=== PATIENT | female | born 1960 | race Caucasian/White ===

== ENCOUNTER → 2018-02-23 | Outpatient (CLI) | payer OTHER ==
[2018-02-24 02:11] LABS: TESTOSTERONE < 3 ng/dL (3-41)
== END ==
LOC: M.LAB 14:46
PROVIDERS: Obstetrics & Gynecology
DX: N95.1 Menopausal and female climacteric states (principal); R68.82 Decreased libido

== ENCOUNTER 2018-07-26 22:09 | Emergency (ER) | payer OTHER ==
[~2018-07-26] VITALS: Ht 162.6 cm; Wt 59.0 kg
[2018-07-26] MEDS ORDERED: PROGESTERONE (22:19)
[2018-07-26] MEDS ORDERED: LISINOPRIL10 MG (22:19)
[2018-07-26 22:22] LABS: URINE BILIRUBIN NEGATIVE (Negative); URINE BLOOD NEGATIVE (Negative); URINE CLARITY CLEAR; URINE COLOR YELLOW; URINE GLUCOSE-RANDOM NEGATIVE (Negative); URINE KETONES NEGATIVE (Negative); URINE LEUKOCYTES-REFLEX NEGATIVE (Negative); URINE NITRITE-REFLEX NEGATIVE (Negative); URINE PROTEIN NEGATIVE (Negative); URINE SPECIFIC GRAVITY 1.015 (1.005-1.030); URINE UROBILINOGEN 0.2 E.U./dl (0.2-1.0)
[2018-07-26 22:38] LABS: ABSOLUTE EOSINOPHILS 0.1 thou/uL (0.0-0.7); ABSOLUTE LYMPHOCYTES 1.9 thou/uL (0.8-5.3); ABSOLUTE MONOCYTES 0.5 thou/uL (0.0-1.2); ABSOLUTE NEUTROPHILS 2.9 thou/uL (1.6-8.1); BASOPHILS 0.8 %; EOSINOPHILS 1.5 %; HEMATOCRIT 40.7 % (37.0-47.0); HEMOGLOBIN 13.8 gm/dL (12.0-15.0); LYMPHOCYTES 34.3 %; MCH 30.4 pg (26.0-34.0); MCV 89.5 fL (80.0-100.0); MONOCYTES 9.6 %; MPV 7.7 fl. (7.2-11.1); NUCLEATED RBCS 0 /100WBC; PLATELET COUNT* 295 thou/uL (150-400); POLYS 53.8 %; RBC 4.55 mil/uL (4.20-5.00); RDW-CV 13.4 % (10.5-14.5); WBC 5.5 thou/uL (4.0-11.0)
[2018-07-26 22:44] LABS: ANION GAP 5 mmol/L (7-16); BUN 24 mg/dL (7-18); CALCIUM 8.9 mg/dL (8.5-10.1); CHLORIDE 101 mmol/L (98-107); CO2 31 mmol/L (21-32); CREATININE 0.9 mg/dL (0.6-1.3); GLUCOSE 97 mg/dL (70-99); POTASSIUM 4.7 mmol/L (3.5-5.1); SODIUM 137 mmol/L (136-145)
[2018-07-26 22:49] LABS: PROTIME 10.7 Seconds (9.20-11.50)
[2018-07-26 22:55] LABS: ALBUMIN 3.9 g/dL (3.4-5.0); ALKALINE PHOSPHATASE 56 U/L (46-116); NT-PRO BRAIN NAT PEPTIDE 284 pg/mL (<300); SGOT 28 U/L (15-37); SGPT 27 U/L (30-65); TOTAL BILIRUBIN 0.4 mg/dL (<0.1-1.0); TOTAL PROTEIN 7.2 g/dL (6.4-8.2); TROPONIN-I LEVEL <0.06 ng/mL (<0.06)
[2018-07-26] MEDS ORDERED: CLONIDINE0.1 PO (23:57)
[2018-07-26] MEDS ORDERED: HYDROCODONE-AP1 EA11 PO (23:57)
[2018-07-26] MEDS ORDERED: LISINOPRIL10 MG PO (23:58)
[2018-07-27 00:52] VITALS: BP 109/67
--- NOTE | 2018-07-27 13:09 | EKG ---
[place] [address] ELECTROCARDIOGRAM REPORT Name: ELKE MOREIRA Room: [facility]#: [id number] Admission: 07/26/18 Attend Phys: Discharge: 07/27/18 Date of : 56 Report #: [id number] THIS REPORT FOR: //name// [facility] ED Test Date: 2018-07-26 Test Time: 22:23:29 Pat Name: ELKE MOREIRA Department: Room: Gender: F Signal Engineer: Darline DAMICO : 1960 Requested By: Re Stoddard Order Number: [id number] MD: Sukhjinder Hernández Measurements Intervals [place] Rate: 63 P: 44 IA: 177 QRS: 39 QRSD: 77 T: 59 QT: 430 QTc: 441 Interpretive Statements Sinus rhythm No previous ECG available for comparison Electronically Signed On 07-27-2018 13:09:19 TARIFF COMPILING CLERK by Sukhjinder Hernández [email or web address] <ELECTRONICALLY SIGNED> By: Sukhjinder Hernández MD, [facility] 07/27/18 1309 [id number] Sukhjinder Hernández MD, FACC /EPI
== END 2018-07-27 00:55 | disposition home or self-care (01) ==
LOC: M.ERS 22:09
PROVIDERS: Emergency Medicine
DX: I10 Essential (primary) hypertension (principal)

== ENCOUNTER → 2018-11-24 | Outpatient (CLI) | payer OTHER ==
[~2018-11-24] MED LIST: CLONIDINE0.1 PO; HYDROCODONE-AP1 EA11 PO; LISINOPRIL10 MG; LISINOPRIL10 MG PO; PROGESTERONE
[2018-11-24 21:06] LABS: TESTOSTERONE 44 ng/dL (3-41)
== END ==
LOC: M.LAB 12:03
PROVIDERS: Obstetrics & Gynecology
DX: N95.1 Menopausal and female climacteric states (principal); R68.82 Decreased libido

== ENCOUNTER 2020-07-25 08:55 | Emergency (ER) | payer OTHER ==
[~2020-07-25] VITALS: Ht 162.6 cm; Wt 58.1 kg
[2020-07-25] MEDS ORDERED: COZAAR 25 MG TA25 M1 PO (09:05)
[2020-07-25 09:11] LABS: URINE BILIRUBIN NEGATIVE (Negative); URINE BLOOD NEGATIVE (Negative); URINE CLARITY CLEAR; URINE COLOR YELLOW; URINE GLUCOSE-RANDOM NEGATIVE (Negative); URINE KETONES TRACE (Negative); URINE NITRITE-REFLEX NEGATIVE (Negative); URINE PROTEIN NEGATIVE (Negative); URINE UROBILINOGEN 0.2 E.U./dl (0.2-1.0)
[2020-07-25 09:12] LABS: URINE LEUKOCYTES-REFLEX 2+ (Negative)
[2020-07-25 09:17] LABS: SQUAMOUS 4-10 Moderate /LPF (0-3); URINE WBC-REFLEX 6-15 Few /HPF (0-5)
[2020-07-25 09:18] LABS: BACTERIA-REFLEX 1-9 Few /HPF (None Seen); CASTS None Seen /LPF (None Seen); CRYSTALS None Seen /LPF (None Seen); MUCUS 0-3 Light strn/LPF (None Seen); URINE RBC 0-2 Rare /HPF (0-2)
[2020-07-25 09:18] LABS: HEMATOCRIT 40.1 % (37.0-47.0); HEMOGLOBIN 13.7 gm/dL (12.0-15.0); MCH 29.5 pg (26.0-34.0); MCHC 34.2 g/dL (28.0-37.0); MCV 86.4 fL (80.0-100.0); MPV 7.5 fl. (7.2-11.1); NUCLEATED RBCS 0 /100WBC; PLATELET COUNT* 245 thou/uL (150-400); RBC 4.64 mil/uL (4.20-5.00); RDW-CV 13.4 % (10.5-14.5); WBC 12.5 thou/uL (4.0-11.0)
[2020-07-25 09:29] LABS: CALCIUM 8.1 mg/dL (8.5-10.1); CREATININE 0.7 mg/dL (0.6-1.3); POTASSIUM 3.7 mmol/L (3.5-5.1)
[2020-07-25 09:33] LABS: TOTAL BILIRUBIN 0.9 mg/dL (<0.1-1.0); TOTAL PROTEIN 7.3 g/dL (6.4-8.2)
[2020-07-25 10:19] LABS: ABSOLUTE LYMPHOCYTES 1.1 thou/uL (0.8-5.3); ABSOLUTE MONOCYTES 0.5 thou/uL (0.0-1.2); ABSOLUTE NEUTROPHILS 10.9 thou/uL (1.6-8.1); PLATELET ESTIMATE ADEQUATE
[2020-07-25] MEDS ORDERED: ZOFRAN ODT4 MG SUBLING (10:46)
[2020-07-25] MEDS ORDERED: FLAGYL500 M1 PO (10:46)
[2020-07-25] MEDS ORDERED: PERCOCET 5-3251 EACH PO (10:46)
[2020-07-25] MEDS ORDERED: CIPROFLOXACIN500 M1 PO (10:46)
[2020-07-25 10:51] VITALS: BP 138/84
--- NOTE | 2020-07-26 10:30 | EKG ---
[place] [address] ELECTROCARDIOGRAM REPORT Name: ELKE MOREIRA Room: [facility]#: [id number] Admission: 07/25/20 Attend Phys: Discharge: 07/25/20 Date of : 56 Date of Service: 07/25/20908 Report #: [id number] THIS REPORT FOR: //name// [facility] ED Test Date: 2020-07-25 Test Time: 09:09:33 Pat Name: ELKE MOREIRA Department: Room: Gender: F Campus Rep: GARFIELD : 1960 Requested By: Hugo Leavitt Order Number: [id number] MD: Sukhjinder Hernández Measurements Intervals [place] Rate: 89 P: 51 MA: 170 QRS: 42 QRSD: 72 T: 34 QT: 358 QTc: 436 Interpretive Statements Sinus rhythm Atrial premature complexes Compared to ECG 07/26/2018 22:23:29 Atrial premature complex(es) now present Electronically Signed On 07-26-2020 10:30:39 SALES CLERK SUPERVISOR by Sukhjinder Hernández [email or web address] <ELECTRONICALLY SIGNED> By: Sukhjinder Hernández MD, [facility] 07/26/20 1030 0909 0909 Sukhjinder Hernández MD, [facility] /EPI
== END 2020-07-25 10:51 | disposition home or self-care (01) ==
LOC: M.ERS 08:55
PROVIDERS: Family Medicine
DX: K57.32 Diverticulitis of large intestine without perforation or abscess without bleeding (principal); R10.32 Left lower quadrant pain; Z79.899 Other long term (current) drug therapy